=== PATIENT | female | born 1960 | race Caucasian/White ===

== ENCOUNTER 2018-09-17 05:54 | Inpatient (IN) | payer BC ==
[~2018-09-17 05:54] MED LIST: Buffered Lidocaine 0.9% SYRIN* 5 ML/SYR SYRINGE INTRADERM ONE
[2018-09-17] MEDS ORDERED: Acetaminophen TAB* 325 MG PO ONE (06:00)
[2018-09-17] MEDS ORDERED: Gabapentin CAP(*) 300 MG PO ONE (06:00)
[2018-09-17] MEDS ORDERED: Gabapentin CAP(*) 100 MG ONE (06:23)
[2018-09-17] MEDS ORDERED: Heparin VIAL(*) 5000 UNITS/ML VIAL (FIVE THOUSAND) ONE (06:24)
[2018-09-17] MEDS ORDERED: Acetaminophen TAB* 325 MG ONE (06:24)
[2018-09-17] MEDS ORDERED: ceFAZolin 2 GM PREMIX in ORs 2 GM/50 ML BAG IVPB ONE (06:24)
[2018-09-17] MEDS ORDERED: Buffered Lidocaine 0.9% SYRIN* 5 ML/SYR SYRINGE ONE (06:24)
[2018-09-17] MEDS ORDERED: Methylene Blue 0.5 %* 50 MG/10 ML AMP IV ONE (06:49)
[2018-09-17] MEDS ORDERED: Bupivacaine 0.25% EPI 200,000* 30 ML SDV ONE ×2 (06:49→08:21)
[2018-09-17] MEDS ORDERED: Morphine VIAL* 10 MG/ML 1 ML VIAL ONE (06:53)
[2018-09-17] MEDS ORDERED: Morphine PCA ADULT* 5 MG/ML 30 ML ONE (06:59)
[2018-09-17] MEDS ORDERED: Midazolam* 1 MG/ML 2 ML VIAL (2 MG) ONE (07:11)
[2018-09-17] MEDS ORDERED: fentaNYL* 50 MCG/ML 2 ML VIAL (100 MCG VIAL) ONE ×3 (07:11→10:25)
[2018-09-17] MEDS ORDERED: Rocuronium* 10 MG/ML VIAL ONE ×2 (07:43→08:38)
[2018-09-17] MEDS ORDERED: Famotidine IV* 10 MG/ML 2 ML (20 mg) ONE (07:51)
[2018-09-17] MEDS ORDERED: Dexamethasone IV* 4 MG/ML 1 ML (4 MG) ONE (07:51)
[2018-09-17] MEDS ORDERED: Ondansetron INJ* 2 MG/ML VIAL ONE ×2 (07:51→10:38)
[2018-09-17] MEDS ORDERED: Propofol* 10 MG/ML 20 ML BTL IV PUSH ONE (07:51)
[2018-09-17] MEDS ORDERED: Naloxone* 0.4 MG/ML 1 ML VIAL IV PRN (08:22)
[2018-09-17] MEDS ORDERED: EPHEDrine (Pressors)* 50 MG/ML VIAL ONE (08:24)
[2018-09-17] MEDS ORDERED: PROCHLORPERAZINE INJ 5 MG/ML 2 ML VIAL IV PRN (08:28)
[2018-09-17] MEDS ORDERED: Scopolamine 1.5 mg* PATCH TRANSDERM PRN (08:28)
[2018-09-17] MEDS ORDERED: DiMENhydriNATE IV* 50 MG/ML VIAL IV PUSH PRN (08:28)
[2018-09-17] MEDS ORDERED: Ondansetron INJ* 2 MG/ML VIAL IV PRN ×2 (08:28→10:35)
[2018-09-17] MEDS ORDERED: Neostigmine Methylsulfate* 2 MG/2 ML SYRINGE ONE (10:04)
--- NOTE | 2018-09-17 10:12 | BRIEFOPN ---
Brief Operative Note - Surgery Procedures: Brief Operative Note Preop Diagnosis:Morbid Obesity Postop Diagnosis: Morbid Obesity Procedure: Nitin en y gastric bypass Anesthesia: GET Surgeon: Dr. Land Bingo Caller: Jonna Sandoval Fluids: 1800 ml EBL: 50 cc Specimen:None Drains: None Finding dictated
[2018-09-17] MEDS ORDERED: DiMENhydriNATE IV* 50 MG/ML VIAL ONE (10:25)
[2018-09-17] MEDS: fentaNYL* 50 MCG/ML 2 ML VIAL (100 MCG VIAL) IV PRN ×4 (10:26→11:29)
[2018-09-17] MEDS ORDERED: HYDROcodone/ACET. 7.5/325 LIQ* 15 ML UDC PO PRN (10:35)
[2018-09-17] MEDS ORDERED: Acetaminophen ADULT LIQ* 650 MG/20.3 ML UDC PO PRN (10:35)
[2018-09-17] MEDS ORDERED: Scopolamine 1.5 mg* PATCH ONE (10:38)
[2018-09-17] MEDS ORDERED: Ondansetron ODT TAB* 4 MG SL PRN (10:38)
[2018-09-17] MEDS ORDERED: PROCHLORPERAZINE INJ 5 MG/ML 2 ML VIAL ONE (11:07)
[2018-09-17] MEDS ORDERED: Ketorolac INJ* 30 MG/ML 1 ML VIAL ONE (11:07)
[2018-09-17] MEDS: Ketorolac INJ* 30 MG/ML 1 ML VIAL IV PRN ×2 (11:28→19:09)
[2018-09-17] MEDS ORDERED: HYDROmorphone INJ1* 1 MG/ML SYRINGE IV SLOW PU PRN ×2 (16:26)
[2018-09-17] MEDS: Heparin VIAL(*) 5000 UNITS/ML VIAL (FIVE THOUSAND) SUBCUT SCH (21:43)
[2018-09-17] MEDS: Famotidine IV* 10 MG/ML 2 ML (20 mg) IV SLOW PU SCH (21:43)
[2018-09-18] MEDS: Ketorolac INJ* 30 MG/ML 1 ML VIAL IV PRN ×3 (01:35→21:07)
[2018-09-18] MEDS: Heparin VIAL(*) 5000 UNITS/ML VIAL (FIVE THOUSAND) SUBCUT SCH ×3 (05:44→21:06)
[2018-09-18] MEDS: Famotidine IV* 10 MG/ML 2 ML (20 mg) IV SLOW PU SCH ×2 (07:47→21:09)
--- NOTE | 2018-09-18 10:40 | PN ---
Progress Note - Progress Note Date of Service: 09/18/18 SOAP: Subjective: Not much pain. No N/V. Passing flatus. Objective: Vital Signs Temp 98.7 F 09/18/18 07:27 Pulse 43 09/18/18 07:27 Resp 18 09/18/18 07:53 BP 107/59 09/18/18 07:27 Pulse Ox 97 09/18/18 07:53 Gen: NAD Lungs: CTA B Abd: soft and NT; incisions c/d/i. Intake & Output 09/17/18 09/18/18 09/18/18 18:59 06:59 18:59 Intake Total 3280 980 952 Output Total 100 550 100 Balance 3180 430 852 Intake: IV Fluids 3280 980 952 LR 3280 980 952 Oral 0 0 Output: Urine 350 100 [place] 100 200 Other: # Bowel Movements 0 Assessment: POD#1 s/p LRYGB. Doing well. Plan: Clears. PO meds. Amb. Likely home in am.
[2018-09-18] MEDS: D5W 1/2 NS KCl 20 Meq 1000 ML* 1,000 ML IV SCH ×2 (11:10→19:55)
[2018-09-18] MEDS: acetaZOLAMIDE TAB* 250 MG PO SCH ×2 (12:43→21:06)
--- NOTE | 2018-09-18 14:40 | OP ---
CC: [facility]; Shandra Luis MD * DATE OF OPERATION: 09/17/18 - ROOM #352 DATE OF : 62 SURGEON: Amrik Land MD CONTINUOUS VULCANIZING MACHINE OPERATOR: JANICE Silva ANESTHESIOLOGIST: Dr. Bragg. ANESTHESIA: General endotracheal. PRE-OP DIAGNOSIS: Clinically severe obesity. POST-OP DIAGNOSIS: Clinically severe obesity. OPERATIVE PROCEDURE: Laparoscopic Nitin-en-Y gastric bypass. ESTIMATED BLOOD LOSS: Less than 20 mL. IV FLUIDS: Crystalloids. SPECIMEN: None. DRAINS: None. COMPLICATIONS: None. COUNTS: The instrument, needle, and sponge counts were correct. DESCRIPTION OF PROCEDURE: The patient was brought to the operating room and placed on the table supine. Sequential compression devices were placed on both lower extremities and general anesthesia was administered. She was administered appropriate intravenous antibiotics. She was positioned and padded appropriately. She was prepped and draped in the usual sterile fashion. A time-out was performed. Local anesthetic was infiltrated into the skin and soft tissue prior to making each incision. Entry to the abdomen was through a left upper quadrant incision accommodating a 12 mm optical trocar After accessing the peritoneal cavity, carbon dioxide was insufflated to a pressure of 15 mmHg. Under direct visualization, a 12 mm bladeless trocar was placed in the supraumbilical midline and in the right upper quadrant. A 5 mm bladeless trocar was placed in the right upper quadrant medially and left upper quadrant laterally. A Emmy liver retractor was placed percutaneously in the subxiphoid position and used to elevate the left lobe of the liver. Gastric anatomy revealed a small hiatal hernia. Otherwise, the anatomy was normal. Mobilization of the fundus of the stomach away from the left dave of the diaphragm was performed using blunt dissection and LigaSure. Next, the gastric pouch was created by initiating a perigastric dissection on the lesser curvature at approximately second crossing vein. After entering the lesser sac , the stomach was partially divided with transit firing of the Endo GI stapler with arriaga cartridge and then vertical firings toward the angle of His were performed to complete the gastric pouch approximating 20 to 30 mL volume. The staple lines noted to be intact and hemostatic. Next, the omentum was retracted superiorly, it was divided down the midline. The ligament of Treitz was identified and the jejunum was measured out approximately 50 cm. At this point, the loop was sutured to the lateral left staple line of the gastric pouch with interrupted 2-0 silks. Next, a gastrojejunal anastomosis was created with the Endo HUMPHREY stapler with a 30 mm arriaga cartridge. The common gastroenterotomy was then run closed with a 3-0 PDS suture over a 34 Irish gastric lavage tube. To complete the anastomosis, the omega loop was divided to the left of the anastomosis with an Endo HUMPHREY stapler with arriaga cartridge. The anastomosis was then tested with methylene blue dye solution instilled through the orogastric tube and no leak was identified. The Nitin limb was then measured out for 75 cm, at which point, a functional end- to- side jejunojejunostomy was created with a 60 mm linear arriaga stapler. The common enterotomy was again run closed with 3-0 PDS. The mesenteric defect was closed with interrupted 3-0 silks. The retro alimentary limb defect was closed with a running 2-0 silk in a purse-string type fashion. Hemostasis was assured. Ports were removed under direct visualization as was the liver retractor. Carbon dioxide was released and the incisions were closed with 4- 0 Monocryl. Steri-Strips were applied with dressings. The patient tolerated the procedure well. She was extubated and transferred to the recovery room in stable condition. [id number]/[facility] #: [id number] RENATO
[2018-09-19] MEDS: D5W 1/2 NS KCl 20 Meq 1000 ML* 1,000 ML IV SCH (03:37)
[2018-09-19] MEDS: Heparin VIAL(*) 5000 UNITS/ML VIAL (FIVE THOUSAND) SUBCUT SCH (05:43)
--- NOTE | 2018-09-19 07:27 | PN ---
Progress Note - Progress Note Date of Service: 09/19/18 SOAP: Subjective: Minimal pain. No N/V. Tashia clears well. +flatus Objective: Vital Signs Temp 98.6 F 09/19/18 03:22 Pulse 47 09/19/18 03:22 Resp 16 09/19/18 03:22 BP 117/63 09/19/18 03:22 Pulse Ox 97 09/19/18 03:22 Abd: incisions c/d/i; no erythema; ecchymoses noted Intake & Output 09/18/18 09/19/18 09/19/18 18:59 06:59 18:59 Intake Total 2317 3328 Output Total 1400 2100 Balance 917 1228 Intake: IV Fluids 1477 1977 D5W 1/2 NS 20 meq KCL 1977 LR 1477 Oral 840 1350 Output: Urine 1400 2100 Other: Estimated Void Medium # Bowel Movements 0 0 Assessment: POD#2 s/p LRYGB. Doing well. Plan: Home today.
[2018-09-19 07:40] VITALS: BP 121/67
[2018-09-19] MEDS: Famotidine IV* 10 MG/ML 2 ML (20 mg) IV SLOW PU SCH (08:53)
[2018-09-19] MEDS: acetaZOLAMIDE TAB* 250 MG PO SCH (08:53)
--- NOTE | 2018-09-19 21:13 | DS ---
CC: Shandra Luis MD; [facility]. * DISCHARGE SUMMARY: DATE OF ADMISSION: 09/17/18 DATE OF DISCHARGE: 09/19/18 DISCHARGE DIAGNOSES: 1. Morbid obesity. 2. Pseudotumor cerebri. PROCEDURES: Laparoscopic gastric bypass on 09/17/18. HOSPITAL COURSE: This is a 57-year-old female with the above mentioned illnesses. Please refer to her preoperative history and physical examination for more detail. Patient was admitted for elective laparoscopic gastric bypass, which was performed on 09/17/18. Please refer to the operative report for more details. She had no postoperative complications, was advanced to a liquid diet on postoperative day #1 and was tolerating this well and passing flatus by postoperative day #2, at which time she was felt stable for discharge. She was discharged home on her usual medications. She had prescription for Lortab Elixir provided to her before surgery and did not feel she would need to use this. She has a scheduled follow up appointment at [facility] on 09/24/18 at 8:30 a.m. She has the appropriate nutrition guidelines provided to her by visual coordinator. She had no laboratory tests pending. [id number]/[facility] #: [id number] [facility]ENTER[facility]ollo
[2018-09-20] MEDS ORDERED: Scopolamine PATCH Remove* 1 NOTE MISC PATCH OFF ONE (08:40)
== END 2018-09-19 10:10 | disposition home or self-care (01) | DRG 403 ==
LOC: AA 05:54 → SSU 10:35
PROVIDERS: ADMIT Surgery; ATTEND Surgery
PROC: 0D164ZA Bypass Stomach to Jejunum, Percutaneous Endoscopic Approach (ICD-10-PCS; principal; 2018-09-17 07:30)
DX: E66.01 Morbid (severe) obesity due to excess calories (principal); G93.2 Benign intracranial hypertension; M17.9 Osteoarthritis of knee, unspecified; K44.9 Diaphragmatic hernia without obstruction or gangrene; G47.33 Obstructive sleep apnea (adult) (pediatric); F32.9 Major depressive disorder, single episode, unspecified; Z90.710 Acquired absence of both cervix and uterus; Z83.3 Family history of diabetes mellitus; Z80.9 Family history of malignant neoplasm, unspecified; Z68.35 Body mass index [BMI] 35.0-35.9, adult; Z72.89 Other problems related to lifestyle; Z87.891 Personal history of nicotine dependence
CPT/HCPCS: 43644; A9270-GY; C1776; J0690; J0780; J1100; J1170; J1240; J1644; J1885; J2250; J2270; J2405; J2704; J3010

== ENCOUNTER 2021-02-21 06:33 | Inpatient (IN) ==
[~2021-02-21 06:33] MED LIST changes: -Buffered Lidocaine 0.9% SYRIN* 5 ML/SYR SYRINGE INTRADERM ONE; +Buffered Lidocaine 1% SYRIN 1 ml INTRADERM ONE; +Lactated Ringers 1000 ml BAG 1,000 ML IV SCH
[2021-02-21] MEDS ORDERED: ceFAZolin 2 GM in NS PREMIX 2 GM/100 ML BAG IVPB ONE (06:42)
[2021-02-21] MEDS ORDERED: Lidocaine 2% PF 5 ML VIAL ONE (06:47)
[2021-02-21] MEDS ORDERED: Phenylephrine IV 10 MG/ML 1 ml VIAL ONE (06:47)
[2021-02-21] MEDS ORDERED: Ondansetron 4 mg VIAL 2 MG/ML 2 ml VIAL ONE (06:47)
[2021-02-21] MEDS ORDERED: Dexamethasone IV 4 MG/ML VIAL 1 ml VIAL ONE ×2 (06:47→06:50)
[2021-02-21] MEDS ORDERED: Propofol 10 MG/ML 20 ML BTL ONE ×2 (06:47→07:08)
[2021-02-21] MEDS ORDERED: Bupivacaine 0.5% SDV PF 30ML VIAL ONE (06:50)
[2021-02-21] MEDS ORDERED: Midazolam 2 mg/2 ml VIAL 1 mg/ml 2 ml VIAL (2 mg) ONE ×2 (06:50→08:04)
[2021-02-21] MEDS ORDERED: Lidocaine 1% MPF 5 ML VIAL ONE (07:08)
[2021-02-21] MEDS ORDERED: Ketamine HCL 50 mg/ml 10 ml VIAL (500 MG) ONE ×2 (07:10→09:02)
[2021-02-21] MEDS ORDERED: ROPIVACAINE 5 MG/ML 30 ML BTL (0.5%) ONE (07:16)
[2021-02-21] MEDS ORDERED: fentaNYL 100 mcg/2 ml 50 MCG/ML VIAL ONE (07:53)
[2021-02-21] MEDS ORDERED: EPHEDrine (Pressors) 50 MG/ML VIAL ONE (08:31)
[2021-02-21] MEDS ORDERED: Naloxone 0.4 mg VIAL 0.4 mg/ml 1 ml VIAL IV PRN (08:39)
[2021-02-21] MEDS ORDERED: diPHENhydraMINE IV 50 MG/ML 1 ml VIAL (BENADRYL) IV PRN ×2 (08:39→08:53)
[2021-02-21] MEDS ORDERED: fentaNYL 100 mcg/2 ml 50 MCG/ML VIAL IV PRN (08:39)
[2021-02-21] MEDS ORDERED: diPHENhydraMINE 25 mg TAB PO PRN (08:53)
[2021-02-21] MEDS ORDERED: Ondansetron 4 mg VIAL 2 MG/ML 2 ml VIAL IV PRN (08:53)
[2021-02-21] MEDS ORDERED: Magnesium Hydroxide LIQ 30 ML UDC PO PRN (08:53)
[2021-02-21] MEDS ORDERED: Morphine 2 MG/ML SYRINGE IV PRN (08:53)
[2021-02-21] MEDS ORDERED: Lactulose 30 ml UDC PO PRN (08:53)
[2021-02-21] MEDS ORDERED: Ondansetron ODT 4 mg TAB 4 MG TAB PO PRN (08:53)
[2021-02-21] MEDS: Lactated Ringers 1000 ml BAG 1,000 ML IV SCH ×2 (11:30→21:19)
[2021-02-21] MEDS: Vitamin THERAPEUTIC TAB PO SCH (13:02)
[2021-02-21] MEDS: Magnesium Hydroxide LIQ 30 ML UDC PO SCH ×2 (13:02→19:49)
[2021-02-21] MEDS: ceFAZolin 1 GM ADVAN 1 GM in NS 0.9% 50 ML 50 ML IVPB SCH ×2 (16:36→23:56)
[2021-02-22 04:38] LABS: Hematocrit 30 % (35-47); Hemoglobin 10.3 g/dL (12.0-16.0); Mean Platelet Volume 8.4 fL (7.4-10.4); Platelet Count 153 10^3/uL (150-450)
[2021-02-22 04:55] LABS: EGFR African American 114.9 (>60); Potassium 3.8 mmol/L (3.5-5.0)
[2021-02-22] MEDS: ceFAZolin 1 GM ADVAN 1 GM in NS 0.9% 50 ML 50 ML IVPB SCH (09:25)
[2021-02-22] MEDS: Vitamin THERAPEUTIC TAB PO SCH (09:31)
[2021-02-22] MEDS: Magnesium Hydroxide LIQ 30 ML UDC PO SCH (09:33)
[2021-02-22 11:32] VITALS: BP 120/55
== END 2021-02-22 14:03 | disposition home or self-care (01) | DRG 302 ==
LOC: AA 06:33 → SSU 11:11
PROVIDERS: ADMIT Orthopaedic Surgery Adult Reconstructive Orthopaedic Surgery; ATTEND Orthopaedic Surgery Adult Reconstructive Orthopaedic Surgery